=== PATIENT | male | born 1945 | race Two or more races ===

== ENCOUNTER 2020-02-12 09:56 | Emergency (ER) | payer OTHER, MEDICAID ==
[~2020-02-12] VITALS: Ht 182.9 cm; Wt 79.4 kg
--- NOTE | 2020-02-12 10:06 | NUR ---
ED Nurse Note: Pt brought in by ambulance. Pt is pale and moaning. Pt VS as documented on RA. Pt started at SR and became sinus barbara. As I was placing his IV his Heartrate went from 60's to 37. a code was called and atropine was given. Heart rate increased into 70's. Pt breathing at a steady even rate SPO2 100% on RA.
--- NOTE | 2020-02-12 10:08 | Emergency Room Report ---
History of Present Illness General Chief Complaint: Nausea, Vomiting, and Diarrhea Source: EMS Present Illness HPI Disclaimer: Please note that this report is being documented using DRAGON technology. This can lead to erroneous entry secondary to incorrect interpretation by the dictating instrument. HPI: 74-year-old male with a history of hypertension, hyperlipidemia, CVA, chronic bedbound per EMS. Presents for evaluation of vomiting and diarrhea as well as left arm swelling. Per EMS family called after the patient was having multiple bouts of nonbloody emesis as well as profuse diarrhea today. They denied fever. They noted swelling of the left upper extremity for the past 3 days. Patient is taking Eliquis after his CVA. No reported trauma. Unable to obtain information from patient. His reported mental status is oriented x1 at baseline. PMH: Hypertension, hyperlipidemia, CVA, diabetes per EMS PSH: Unable to obtain from patient Allergies: Unable to obtain from patient Social Hx: Unable to obtain from patient Allergies: Coded Allergies: No Known Allergies (Unverified , 02/12/20) COVID-19 Screening Contact w/high risk pt: No Experienced COVID-19 symptoms?: No COVID-19 Testing performed JOINT CREASER: No Nursing Documentation-PMH Hx Hypertension: Yes - hyperlipedemia Hx Diabetes: Yes Hx Cerebrovascular Accident: Yes Review of Systems All Other Systems: negative except mentioned in HPI Physical Exam Vital Signs Date Time Temp Pulse Resp B/P (MAP) Pulse Ox O2 Delivery O2 Flow Rate FiO2 02/12/20 09:56 95.7 50 18 124/85 (98) 100 Room Air General: Awake, appears fatigued and uncomfortable HEENT: NC/AT. EOMI. Cardiovascular: Bradycardic Resp: Normal work of breathing. No cough, wheezing or crackles appreciated Abdomen: Abdomen is soft, nondistended. Tender to palpation in the epigastrium, right upper quadrant, left upper quadrant and periumbilical region. Skin: Edema and erythema left upper extremity. MSK: Circumferential edema of the left upper extremity from the upper shoulder down through the forearm. Neuro: Awake, moaning. Appears confused Procedures Critical Care Time Critical Care Time Total critical care time: Approximately 75 minutes Due to a high probability of clinically significant, life threatening deterioration, the patient required the highest level of preparedness to intervene emergently and I personally spent this critical care time directly and personally managing the patient. This critical care time included obtaining a history, examining the patient, pulse oximetry, ordering and reviewing studies, ordering treatments, evaluating response to treatment and updating management plan as needed, frequent reassessment and discussion with other providers as well as arranging for ultimate disposition. This critical to care time was performed to assess and manage the high probability of life-threatening deterioration that could result in multiorgan failure. This critical care time is separate from the separately billable procedures and treating other patients. Medical Decision Making Diagnostic Impression: Primary Impression: Ventricular tachycardia Additional Impressions: Renal failure Hyperkalemia Elevated troponin Cardiac arrest Anemia Hyperglycemia ER Course Is a 74-year-old male presenting for evaluation of vomiting, diarrhea and left arm swelling. Concern for DVT, cellulitis, gastritis, gastroenteritis, pancreatitis, cholecystitis, bowel obstruction, mesenteric ischemia, viral syndrome, among others. IV access established. Patient placed on monitor. Sepsis work-up initiated including IV fluids at 30 cc/kg. Patient arrives bradycardic with wide-complex and prolonged QTC at 516 ms. Shortly after arrival alerted by nursing staff that the patient's rhythm had changed and he was in a wide-complex tachycardia. Repeat EKG confirms wide-complex tachycardia consistent with either ventricular tachycardia versus hyperkalemia. QTC increasingly prolonged. The patient was treated with magnesium, calcium. EKG improved with narrowing of QRS duration and QTC. Had plan for ICU admission however the patient became bradycardic requiring push dose pressors and atropine. He went into wide-complex ventricular tachycardia and hypotensive re quiring defibrillation. Amiodarone was given. This stabilized the patient for a time however again went into a wide-complex tachycardia and unresponsive without palpable pulse. Additional calcium given as well as epinephrine, bicarbonate, magnesium. Patient underwent CPR and resuscitative efforts for approximately 30 minutes. Rhythm check showed asystole. Due to the prolonged nature of the code, likely poor prognosis resuscitative were efforts were terminated at 1156. Labs resulted following patient's . Multiple electrolyte abnormalities, acute renal failure, elevated lactate, anemia, elevated troponin identified Laboratory Tests Test 02/12/20 10:10 White Blood Count 8.0 K/UL (4.8-10.8) Red Blood Count 3.11 M/UL (4.70-6.10) L Hemoglobin 7.8 G/DL (14.2-18.0) L Hematocrit 24.9 % (42.0-52.0) L Mean Corpuscular Volume 80 FL (80-99) Mean Corpuscular Hemoglobin 25.0 PG (27.0-31.0) L Mean Corpuscular Hemoglobin Concent 31.2 G/DL (32.0-36.0) L Red Cell Distribution Width 18.5 % (11.6-14.8) H Platelet Count 276 K/UL (150-450) Mean Platelet Volume 6.6 FL (6.5-10.1) Neutrophils (%) (Auto) % (45.0-75.0) Lymphocytes (%) (Auto) % (20.0-45.0) Monocytes (%) (Auto) % (1.0-10.0) Eosinophils (%) (Auto) % (0.0-3.0) Basophils (%) (Auto) % (0.0-2.0) Differential Total Cells Counted 100 Neutrophils % (Manual) 75 % (45-75) Lymphocytes % (Manual) 11 % (20-45) L Monocytes % (Manual) 14 % (1-10) H Eosinophils % (Manual) 0 % (0-3) Basophils % (Manual) 0 % (0-2) Band Neutrophils 0 % (0-8) Platelet Estimate Adequate Platelet Morphology Normal Polychromasia 1+ Hypochromasia 1+ Anisocytosis 1+ Prothrombin Time 16.4 SEC (9.30-11.50) H Prothrombin Time INR 1.5 (0.9-1.1) H Activated Partial Thromboplast Time 30 SEC (23-33) Sodium Level 125 MMOL/L (136-145) L Potassium Level 8.9 MMOL/L (3.5-5.1) *H Chloride Level 96 MMOL/L (98-107) L Carbon Dioxide Level 13 MMOL/L (21-32) L Anion Gap 17 mmol/L (5-15) H Blood Urea Nitrogen 204 mg/dL (7-18) H Creatinine 6.6 MG/DL (0.55-1.30) H Estimated Glomerular Filtration Rate 8.3 mL/min (>60) Glucose Level 220 MG/DL (74-106) H Lactic Acid Level 4.60 mmol/L (0.4-2.0) H Calcium Level 8.7 MG/DL (8.5-10.1) Phosphorus Level 9.2 MG/DL (2.5-4.9) H Magnesium Level 3.1 MG/DL (1.8-2.4) H Total Bilirubin 0.6 MG/DL (0.2-1.0) Aspartate Amino Transferase (AST) 39 U/L (15-37) H Alanine Aminotransferase (ALT) 22 U/L (12-78) Alkaline Phosphatase 263 U/L (46-116) H Total Creatine Kinase 210 U/L (26-308) Creatine Kinase MB 15.0 NG/ML (0.0-3.6) H Creatine Kinase MB Relative Index 7.1 Troponin I 1.152 ng/mL (0.000-0.056) Pro-B-Type Natriuretic Peptide > 11923 pg/mL (0-125) H Total Protein 8.3 G/DL (6.4-8.2) H Albumin 2.6 G/DL (3.4-5.0) L Globulin 5.7 g/dL Albumin/Globulin Ratio 0.5 (1.0-2.7) L Amylase Level 57 U/L (25-115) Lipase 173 U/L (73-393) EKG Diagnostic Results Troponin ordered: Yes When was troponin ordered?: Feb 12, 2020 EKG Time: 10:09 Rate: bradycardiac Other Impression Indeterminate rhythm. Bradycardic rate. Long QTC at [address] segment elevation identified Rhythm Strip Diag. Results Rhythm Strip Time: 10:09 EP Interpretation: yes Rate: 40s Rhythm: NSR, other - Occasional PVC Last Vital Signs Date Time Temp Pulse Resp B/P (MAP) Pulse Ox O2 Delivery O2 Flow Rate FiO2 02/12/20 09:56 95.7 50 18 124/85 (98) 100 Room Air Disposition: Condition: Tomas Borges MD Feb 12, 2020 10:08
[2020-02-12 10:10] VITALS: BP 124/85
[2020-02-12] MEDS ORDERED: TORSEMIDE20 MG ORAL (10:10)
[2020-02-12] MEDS ORDERED: ELIQUIS2.5 MG ORAL (10:10)
[2020-02-12] MEDS ORDERED: DOCUSATE SODIU250 MG ORAL (10:10)
[2020-02-12] MEDS ORDERED: LISINOPRIL2.5 MG ORAL (10:10)
[2020-02-12] MEDS ORDERED: MIRTAZAPINE15 M3 ORAL (10:10)
[2020-02-12] MEDS ORDERED: TESSALON PERLE100 MG ORAL (10:10)
[2020-02-12] MEDS ORDERED: FUROSEMIDE40 MG ORAL (10:10)
[2020-02-12] MEDS ORDERED: METOPROLOL SUCC50 MG ORAL (10:10)
[2020-02-12] MEDS ORDERED: FERROUS SULFAT325 MG ORAL (10:10)
[2020-02-12] MEDS ORDERED: SEROQUEL50 MG ORAL (10:10)
[2020-02-12] MEDS ORDERED: ASPIRIN81 MG ORAL (10:10)
[2020-02-12] MEDS ORDERED: ALLOPURINOL100 M1 ORAL (10:10)
[2020-02-12] MEDS ORDERED: MAGNESIUM OXID500 M1 PO (10:10)
[2020-02-12] MEDS ORDERED: CRESTOR10 M1 ORAL (10:10)
[2020-02-12] MEDS ORDERED: Cefepime HCl 2 GM in NS 110 ML IV ONE (10:15)
[2020-02-12] MEDS ORDERED: Omnipaque-300 100ml vial INJ PRN (10:15)
[2020-02-12] MEDS ORDERED: Atropine Inj 1mg/10ml Syr IVP ONE (10:15)
[2020-02-12 11:01] LABS: HEMATOCRIT 24.9 % (42.0-52.0); HEMOGLOBIN 7.8 G/DL (14.2-18.0); MEAN CORPUSCULAR VOLUME 80 FL (80-99); PLATELET COUNT 276 K/UL (150-450); RED BLOOD COUNT 3.11 M/UL (4.70-6.10); RED CELL DISTRIBUTION WIDTH 18.5 % (11.6-14.8)
[2020-02-12 11:14] LABS: INR 1.5 (0.9-1.1)
[2020-02-12] MEDS ORDERED: Levophed 4mg/4mL Inj IV ONE (11:21)
[2020-02-12] MEDS ORDERED: Lidocaine 2% 20mg/ml/EPI 0.01mg/ml 20ml ONE (11:23)
[2020-02-12 11:30] LABS: ALANINE AMINOTRANSFERASE 22 U/L (12-78); ALBUMIN 2.6 G/DL (3.4-5.0); ALBUMIN/GLOBULIN RATIO 0.5 (1.0-2.7); ALKALINE PHOSPHATASE 263 U/L (46-116); AMYLASE 57 U/L (25-115); ASPARTATE AMINO TRANSFERASE 39 U/L (15-37); BILIRUBIN,TOTAL 0.6 MG/DL (0.2-1.0); BLOOD UREA NITROGEN 204 mg/dL (7-18); CALCIUM 8.7 MG/DL (8.5-10.1); CREATINE KINASE 210 U/L (26-308); CREATININE 6.6 MG/DL (0.55-1.30); PHOSPHORUS 9.2 MG/DL (2.5-4.9)
[2020-02-12 11:39] LABS: ANION GAP 17 mmol/L (5-15); CARBON DIOXIDE 13 MMOL/L (21-32); CHLORIDE 96 MMOL/L (98-107); SODIUM 125 MMOL/L (136-145)
[2020-02-12] MEDS ORDERED: Sodium Bicarbonate 50ml Carp ONE (11:48)
[2020-02-12 11:53] LABS: POTASSIUM 8.9 MMOL/L (3.5-5.1)
[2020-02-12] MEDS ORDERED: Calcium Gluconate 1gm/10ml vial ONE (11:54)
--- NOTE | 2020-02-12 11:56 | NUR ---
ED Nurse Note: Code Blue was called at 10:30. Pt rythym entered into V-tach 140 bpm. Pt is was pale but responsive. Could answer questions asked by RN. MD ordered Mg to be given. 1 gm of calcium ordered and given. Pt became stable BP 98/48, Hr 101, 100% SPO2, RR 18. 10:47 pt re-entered vtach rate of 140. BP 111/45 Pulse was palpable. Pt was responsive and answering questions. MD ordered to give amioderone. after pt was hypotensive 84/24. ERMD aware and at bedside.
--- NOTE | 2020-02-12 11:56 | NUR ---
ED Nurse Note: Pt 11:56. Refer to code sheet. family took belongings home with them. [facility] called.
--- NOTE | 2020-02-12 12:15 | NUR ---
ED Nurse Note: SPOKE WITH LINA, REGARDING THE CRITICAL CONDITION OF THE PATIENT
--- NOTE | 2020-02-12 12:25 | NUR ---
ED Nurse Note: ATTEMPTED TO CALL THE MULTIPLE TIMES TO REPORT THE EXPIRATION OF THE PATIENT. LEFT VOICEMAIL TO CALL ME BACK AT [phone]
--- NOTE | 2020-02-12 12:48 | NUR ---
ED Nurse Note: ATTEMPTED TO CALL AGAIN BUT NO RESPONSE. LEFT MESSAGE
--- NOTE | 2020-02-12 13:00 | NUR ---
ED Nurse Note: 1212- called Marcelle from [facility]: [facility] # [id number] 1225- CALLED test consultant's case, SPOKE WITH CELINE, NOT A ASSET PROTECTION MANAGER'S CASE
--- NOTE | 2020-02-12 13:34 | NUR ---
ED Nurse Note: per - the pmd of the patiet is Dr. Jason Evans-
--- NOTE | 2020-02-12 14:18 | NUR ---
ED Nurse Note: PT.'S BELONGINGS WERE GIVEN BACK TO THE TO THE . AND A CONCEPT ARTIST AT THE BEDSIDE
== END 2020-02-12 11:56 | disposition expired ==
LOC: EDBD 09:56 → EMR 10:16
DX: I46.9 Cardiac arrest, cause unspecified (principal); N17.9 Acute kidney failure, unspecified; I47.2 Ventricular tachycardia; E87.5 Hyperkalemia; R79.89 Other specified abnormal findings of blood chemistry; D64.9 Anemia, unspecified; E11.65 Type 2 diabetes mellitus with hyperglycemia; E78.5 Hyperlipidemia, unspecified; I10 Essential (primary) hypertension; Z86.73 Personal history of transient ischemic attack (TIA), and cerebral infarction without residual deficits; Z79.01 Long term (current) use of anticoagulants; R00.1 Bradycardia, unspecified; R22.32 Localized swelling, mass and lump, left upper limb
CPT/HCPCS: 36415; 80053; 82150; 82550; 82553; 83605; 83690; 83735; 83880; 84100; 84484; 85007; 85025; 85610; 85730; 87040; 92950; 93005; 96361; 96365; 96375; 99291; 99292; J0610; J7030